=== PATIENT | female | born 1950 | race Caucasian/White ===

== ENCOUNTER 2018-08-27 11:24 | Outpatient (CLI) | payer MEDICARE, OTHER ==
--- NOTE | 2018-08-27 12:53 | XRAY Report ---
Reason: L FOOT PAIN AFTER TRAUMA Procedure Date: 08/27/2018 Accession Number: [id number] / [id number] Procedure: XR - Foot 3 View LT CPT Code: FULL RESULT: EXAM: LEFT FOOT RADIOGRAPHY EXAM DATE: 08/27/2018 11:44 AM. CLINICAL HISTORY: Left foot pain after trauma. COMPARISON: None. TECHNIQUE: 3 views. FINDINGS: Bones: Mild inferior calcaneal spurring. No fractures or bone lesions. Joints: Normal. No subluxations. Soft Tissues: No soft tissue gas or radiopaque foreign body. IMPRESSION: No radiopaque foreign body or soft tissue gas. RADIA
== END 2018-08-27 11:25 | disposition home or self-care (01) ==
LOC: DI 11:24
PROVIDERS: ATTEND Internal Medicine
DX: M79.672 Pain in left foot (principal)

== ENCOUNTER 2021-02-12 07:00 | Outpatient (CLI) | payer MEDICARE, OTHER | END 2021-02-12 23:59 | disposition home or self-care (01) | LOC: COV 07:00 | PROVIDERS: ATTEND Family Medicine | DX: U07.1 COVID-19 (principal) ==

== ENCOUNTER 2021-08-04 09:33 | Emergency (ER) | payer MEDICARE, OTHER ==
[2021-08-04 09:44] VITALS: BP 135/74
--- NOTE | 2021-08-04 10:06 | ED Physician Documentation ---
PD HPI UPPER EXT INJURY - Stated complaint Stated Complaint: R WRIST PX - Chief complaint Chief Complaint: Ext Problem - History obtained from History obtained from: Patient - History of Present Illness Location: Right (70-year-old woman who is right-handed fell on outstretched wrist last night outside. Has severe pain of the right wrist. No other injuries.) Review of Systems Constitutional: reports: Reviewed and negative Cardiac: reports: Reviewed and negative Respiratory: reports: Reviewed and negative PD PAST MEDICAL HISTORY - Allergies Allergies/Adverse Reactions: Allergies Allergy/AdvReac Type Severity Reaction Status Date / Time No Known Drug Allergies Allergy Verified 08/04/21 09:44 PD ED PE NORMAL - Vitals Vital signs reviewed: Yes - General General: Alert and oriented X 3, No acute distress - Extremities Extremities: Other (Deformity of the distal right wrist consistent with Colles' fracture. No distal neurovascular compromise.) - Neuro Neuro: Alert and oriented X 3, Normal speech Results - Vitals Vitals: Vital Signs - 24 hr 08/04/21 09:39 Temperature 36.5 C Heart Rate 80 Respiratory 15 Rate Blood Pressure 135/74 H O2 Saturation 99 Oxygen O2 Source Room air - Rads (name of study) R wrist XR Radiology: EMP read contemporaneously (Mildly displaced intra-articular fracture of the distal radius and ulnar styloid) Procedures - Splint (location) RUE Splint applied by: Physician Type of splint: Fiberglass, Long arm, Sugar tong Other: Patient tolerated well, No complications, Neurovascular intact - Reduction Body part reduced: Right, Wrist Fracture or dislocation: Fracture dislocation Anesthesia: Hematoma block (6ml 1%lido with epi, After ChloraPrep. I offered multiple times for procedural sedation and she declined.) Reduction aftercare: Alignment improved, Splint applied, Sling Departure - Departure Disposition: Home, Self Care Clinical Impression: Colles' fracture of right radius Qualifiers: Encounter type: initial encounter Fracture type: closed Qualified Code(s): S52.531A - Colles' fracture of right radius, initial encounter for closed fracture Condition: Good Record reviewed to determine appropriate education?: Yes Instructions: ED Fx Forearm Radius Ulna Redu Requ Follow-Up: [facility] [Provider Group] Comments: Call Dr. Marcial's office tomorrow for an appointment within a week to a week and a half. Keep the splint on and dry, do not remove it. Elevate and Tylenol and/or ibuprofen as needed for pain.
--- NOTE | 2021-08-04 10:21 | XRAY Report ---
PROCEDURE: Wrist 4 View RT INDICATIONS: wrist inj TECHNIQUE: 4 views of the wrist were acquired. COMPARISON: None FINDINGS: Bones: There is a mildly displaced fracture of the radial styloid with intra-articular extension. The re is slight cortical step-off of the articular surface. Additional fracture fragment is noted on the dorsal aspect of the radius. Mildly displaced ulnar styloid fracture. Degenerative changes of the wr ist and hand worse at the first carpometacarpal joint where it is at least moderate. No suspicious caryn ny lesions. Scaphoid view: No scaphoid fracture. Soft tissues: No suspicious soft tissue calcifications. Diffuse soft tissue swelling. IMPRESSION: Mildly displaced intra-articular fracture of the distal radius as well as a mildly displaced fracture of the ulnar styloid. Reviewed by: Alberto Dias DO on 08/04/2021 9:20 AM SIHRLENE Approved by: Alberto Dias DO on 08/04/2021 9:20 AM [place] Station ID: [id number]
== END 2021-08-04 11:11 | disposition home or self-care (01) ==
LOC: ED 09:33
DX: S52.531A Colles' fracture of right radius, initial encounter for closed fracture (principal); W19.XXXA Unspecified fall, initial encounter
CPT/HCPCS: 25605; 99282; 99283

== ENCOUNTER 2021-08-08 11:20 | Outpatient (CLI) | payer MEDICARE ==
--- NOTE | 2021-08-08 12:20 | XRAY Report ---
PROCEDURE: Wrist 3 View RT INDICATIONS: POST REDUCTION WRIST FX TECHNIQUE: 3 views of the wrist were acquired. COMPARISON: 08/04/2021 FINDINGS: Bones: There is interval cast placement over right wrist. Again noted is comminuted and impacted intr a-articular fracture of distal radius with interval worsening of volar displacement of fractured frag ments and up to 1 cm overlapping of fracture site not significantly changed in wrist alignment compar ed to previous study. Ulnar styloid tip fracture is again seen and unchanged. No new fracture or disl ocation. No suspicious bony lesions. Scaphoid view: Scaphoid is grossly intact. Soft tissues: No suspicious soft tissue calcifications. IMPRESSION: Interval cast placement over right wrist with comminuted, impacted and slightly displaced fracture in volving distal radius. Minimally displaced fracture also seen involving ulnar styloid. Overall wrist alignment is not significantly changed from prior study. No new fracture or dislocation. Reviewed by: Mc Solomon MD on 08/08/2021 12:19 PM PST Approved by: Mc Solomon MD on 08/08/2021 12:19 PM PST Station ID: [id number]
== END 2021-08-08 11:21 | disposition home or self-care (01) ==
LOC: DI.WOS 11:20
PROVIDERS: ATTEND Orthopaedic Surgery
DX: S52.571A Other intraarticular fracture of lower end of right radius, initial encounter for closed fracture (principal); S52.611A Displaced fracture of right ulna styloid process, initial encounter for closed fracture

== ENCOUNTER 2021-08-12 10:56 | Day surgery (SDC) | payer MEDICARE ==
[~2021-08-12 10:56] MED LIST: ACETAMINOPHEN 500 MG TABLET PO ONE; CEFAZOLIN SODIUM IN 0.9 % NACL 2 GM/100 ML BAG IV ONE; CELECOXIB 100 MG CAPSULE PO ONE
[2021-08-12] MEDS ORDERED: LACTATED RINGERS 1,000 ML IV ONE ×2 (11:05→13:51)
--- NOTE | 2021-08-12 11:54 | ANESTHESIA ---
Pre-Anesthesia VS, & Labs - Diagnosis R wrist fracture - Procedure R wrist ORIF Vital Signs: Temp Pulse Resp BP Pulse Ox 37 C 79 12 149/81 H 96 08/12/21 11:05 08/12/21 11:05 08/12/21 11:05 08/12/21 11:05 08/12/21 11:05 Height: 5 ft 2 in Weight (kg): 72.5 kg Body Mass Index: 29.2 BMI Classification: Overweight - NPO >8 hours - Is Patient ?: No Home Medications and Allergies Home Medications: Ambulatory Orders Acetaminophen [Tylenol] 650 mg PO Q6H PRN 08/09/21 Ibuprofen [Motrin] 1 tablet PO Q8H PRN 08/09/21 Omeprazole Magnesium 20 mg PO DAILY 08/09/21 PARoxetine [Paxil] 10 mg PO DAILY 08/09/21 Spironolactone [Aldactone] 50 mg PO DAILY 08/09/21 diphenhydrAMINE [Benadryl] 25 mg PO ONCE 08/09/21 Acetaminophen [Tylenol] 650 mg PO Q6H PRN 08/09/21 Ibuprofen [Motrin] 1 tablet PO Q8H PRN 08/09/21 Omeprazole Magnesium 20 mg PO DAILY 08/09/21 PARoxetine [Paxil] 10 mg PO DAILY 08/09/21 Spironolactone [Aldactone] 50 mg PO DAILY 08/09/21 diphenhydrAMINE [Benadryl] 25 mg PO ONCE 08/09/21 Allergies/Adverse Reactions: Allergies Allergy/AdvReac Type Severity Reaction Status Date / Time No Known Drug Allergies Allergy Verified 08/04/21 09:44 Anes History & Medical History - Anesthetic History Anesthesia Complications: reports: No previous complications Family history of Anesthesia Complications: Denies Family history of Malignant Hyperthermia: Denies - Medical History Cardiovascular: reports: Hypertension, High cholesterol Pulmonary: reports: None Gastrointestinal: reports: GERD Neuro: reports: None Endocrine/Autoimmune: reports: None Skin: reports: None Smoking Status: Never smoker - Surgical History Eyes Ears Nose Throat (EENT): reports: Tonsil/Adenoidectomy Gynecologic: reports: Dilation and currettage Orthopedic: reports: Rotator cuff repair Exam General: Alert, Oriented x3, Cooperative Dental: WNL Mouth Openin Fingerbreadth Neck Mobility: Normal Mallampati classification: II Thyromental Distance: 4-6 cm Respiratory: Lungs clear Cardiovascular: Regular rate Plan Anesthesia Type: General, Total IV, Supraclavicular Block Consent for Procedure(s) Verified and Reviewed: Yes Code Status: Attempt Resuscitation ASA classification: 3-Severe systemic disease Is this case an emergency?: No
[2021-08-12] MEDS ORDERED: LIDOCAINE-MPF 2% 5 ML VIAL ONE ×2 (12:14→12:17)
[2021-08-12] MEDS ORDERED: PROPOFOL 200 MG/20 ML VIAL IVP ONE (12:14)
[2021-08-12] MEDS ORDERED: DEXAMETHASONE 4 MG/ML VIAL ONE (12:14)
[2021-08-12] MEDS ORDERED: ROPIVACAINE 0.5% PF 20 ML AMPULE ONE (12:14)
[2021-08-12] MEDS ORDERED: fentaNYL 100 MCG/2 ML VIAL ONE (12:28)
[2021-08-12] MEDS ORDERED: MIDAZOLAM 2 MG/2 ML VIAL ONE (12:28)
[2021-08-12] MEDS ORDERED: KETAMINE 500 MG/10 ML VIAL ONE (13:08)
[2021-08-12] MEDS ORDERED: PROPOFOL 500 MG/50 ML 500 MG/50 ML VIAL ONE (13:14)
--- NOTE | 2021-08-12 13:50 | OPERATIVE REPORT ---
Operative Report - General Procedure Date: 08/12/21 Planned Procedure: Closed reduction right distal radius with percutaneous pinning Pre-Op Diagnosis: Displaced intra-articular fracture right distal radius and ulnar styloid Procedure Performed: Closed reduction right distal radius with percutaneous pinning, application of short arm volar fiberglass splint Post Op Diagnosis: Same as preoperative diagnosis - Procedure Note Primary Surgeon: Todd Marcial MD Anesthesia Provider: Gayathri Dale CRNA Anesthesia Technique: Moderate sedation, Regional block Estimated Blood Loss (mL): 1 Indications: This is a 70-year-old woman with a history of fall onto her outstretched right hand, sustaining isolated injury to the right distal forearm. She was seen in the emergency room following the injury within the past week or so and had a closed reduction attempted. Her dominant hand is right. She had tenderness and deformity to right distal radius with incomplete reduction of right distal radius and ulnar styloid fracture. The fracture was intra-articular, shortened and angulated. Her treatment options were discussed and she prefers the least invasive approach to stabilizing her fracture. She was in agreement to closed reduction and percutaneous pinning of the right distal radius. Findings: She has a comminuted, displaced intra-articular fracture of the right distal radius with small fracture to the ulnar styloid. This is associated with osteopenia. Complications: None - Other Other Information/Narrative: The patient was brought to the operating room and was placed in a supine position with the right arm on a arm extension table. She received a regional block with supplemental sedation. The right upper extremity was prepped and draped in a sterile manner in the usual fashion. The C-arm image intensifier was utilized and covered with a sterile drape. A timeout procedure was performed by the entire operating room team and all were in agreement. Finger traps were applied to all 5 fingers and a traction bow as well. Longitudinal traction was applied, direct manipulation of the fracture site over a sterile bump. The C-arm image intensifier showed improved alignment and a percutaneous pinning was performed with 0.062 K wires. The bare area of the radial styloid was engaged and pin was inserted from the styloid across the fracture to achieve bicortical fixation. An additional K wire from the radial styloid was also inserted to provide 2 bicortical K wires from the radial styloid. 2 additional K wires were inserted: one from the ulnar corner of the distal radius distally and these were then driven from distal to proximal and ulnar to radial and a second from radial to ulnar parallel to the radiocarpal joint. Biplanar and oblique imaging was obtained and there was satisfactory alignment of the fixation and fracture. The K wires were cut external to skin and covered with sterile balls. A well-padded short arm fiberglass splint was applied with gauze padding around the K wires. She tolerated the procedure well. No tourniquet was utilized.
[2021-08-12] MEDS ORDERED: HYDROcod/ACETAM 10 MG/325 MG TABLET PO PRN (14:09)
[2021-08-12] MEDS ORDERED: HYDROcod/ACETAM 5/325 MG TABLET PO PRN (14:09)
[2021-08-12 14:25] VITALS: BP 152/75
--- NOTE | 2021-08-12 14:46 | XRAY Report ---
PROCEDURE: OR C-Arm Procedure INDICATIONS: PERC PINNING OF DISTAL RADIUS TECHNIQUE: 2 intraoperative fluoroscopic views of the distal radius were acquired. COMPARISON: Plain films 08/08/2021 FINDINGS: 2 intraoperative fluoroscopic spot images demonstrate multiple pins fixing a distal radius fracture. IMPRESSION: Intraoperative fluoroscopy for distal radius pinning. Reviewed by: Ping Sotomayor MD on 08/12/2021 2:44 PM PST Approved by: Ping Sotomayor MD on 08/12/2021 2:44 PM PST Station ID: [id number]
--- NOTE | 2021-08-12 16:22 | ANESTHESIA POST OP EVALUATION ---
Anesthesia Post Eval - Post Anesthesia Eval Vitals: Last Vital Signs Temp 36.6 C 08/12/21 14:24 Pulse 55 L 08/12/21 14:24 Resp 12 08/12/21 14:24 BP 152/75 H 08/12/21 14:24 Pulse Ox 97 08/12/21 14:24 CV Function Including HR & BP: Stable Pain Control: Satisfactory Nausea & Vomiting: Negative Mental Status: Baseline Respiratory Status: Airway Patent Hydration Status: Satisfactory Anesthesia Complications: None
== END 2021-08-12 10:57 | disposition home or self-care (01) ==
LOC: SDS 10:56
PROVIDERS: ATTEND Orthopaedic Surgery
DX: S52.571A Other intraarticular fracture of lower end of right radius, initial encounter for closed fracture (principal); F17.200 Nicotine dependence, unspecified, uncomplicated
CPT/HCPCS: 25606; A9270; C1713; J0690; J7120

== ENCOUNTER 2021-09-26 07:49 | Outpatient (CLI) | payer MEDICARE ==
--- NOTE | 2021-09-26 16:21 | XRAY Report ---
PROCEDURE: Wrist 3 View RT INDICATIONS: WRIST FRACTURE TECHNIQUE: 3 views of the wrist were acquired. COMPARISON: 08/04/2021, 08/08/2021 FINDINGS: Bones: No significant interval progress in healing of a comminuted, impacted displaced distal radius fracture extending to the articular surface with a distal radial ulnar joint dislocation and associat ed ulnar styloid avulsion. Disuse osteopenia. Soft tissues: No suspicious soft tissue calcifications. IMPRESSION: 1. No significant interval progress in healing of comminuted, impacted displaced distal radius fractu re extending to the articular surface with distal radial ulnar dislocation. Associated ulnar styloid avulsion. 2. Disuse osteopenia. Reviewed by: Keshawn Puente MD on 09/26/2021 4:20 PM PST Approved by: Keshawn Puente MD on 09/26/2021 4:20 PM PST Station ID: [id number]
== END 2021-09-26 07:50 | disposition home or self-care (01) ==
LOC: DI.WOS 07:49
PROVIDERS: ATTEND Orthopaedic Surgery
DX: S52.571A Other intraarticular fracture of lower end of right radius, initial encounter for closed fracture (principal); M85.88 Other specified disorders of bone density and structure, other site

== ENCOUNTER → 2021-11-04 | Outpatient (CLI) | payer MEDICARE ==
--- NOTE | 2021-11-04 16:24 | XRAY Report ---
PROCEDURE: Wrist 3 View RT INDICATIONS: WRIST FRACTURE TECHNIQUE: 3 views of the wrist were acquired. COMPARISON: X-ray wrist 09/26/2021, 08/04/2021 FINDINGS: Bones: Comminuted intra-articular distal radial fracture with impaction, demonstrate minimal interval healing. Ulna styloid fracture is also stable. Alignment is stable. Soft tissues: No suspicious soft tissue calcifications. IMPRESSION: Minimal interval healing of previously identified distal radial fracture. Unchanged ulna styloid fracture. Reviewed by: Cha Dickinson MD on 11/04/2021 4:22 PM PDT Approved by: Cha Dickinson MD on 11/04/2021 4:22 PM PDT Station ID: [id number]
== END ==
LOC: DI.WOS 11:15
PROVIDERS: ATTEND Physician Assistant
DX: S52.571D Other intraarticular fracture of lower end of right radius, subsequent encounter for closed fracture with routine healing (principal); S52.611D Displaced fracture of right ulna styloid process, subsequent encounter for closed fracture with routine healing